=== PATIENT | male | born 1995 | race African-American/Black ===

== ENCOUNTER 2017-06-30 19:47 | Emergency (ER) | payer BC ==
[2017-06-30 19:52] VITALS: BP 144/83; PULSE 70; TEMP 98.8; BMI 23.6
[2017-06-30] MEDS ORDERED: DIPHTH,PERTUSS(ACELL),TET 0.5 ML DISP.SYRIN IM ONE (20:09)
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
[2017-06-30] MEDS ORDERED: IBUPROFEN 600 MG TABLET (FP) PO ONE ×2 (20:54→20:55)
== END 2017-06-30 21:58 | disposition home or self-care (01) ==
LOC: JERFT 19:47
PROC: 0HQKXZZ Repair Right Lower Leg Skin, External Approach (ICD-10-PCS; principal; 2017-06-30)
PROC: 3E0234Z Introduction of Serum, Toxoid and Vaccine into Muscle, Percutaneous Approach (ICD-10-PCS; 2017-06-30)
DX: S81.011A Laceration without foreign body, right knee, initial encounter (principal); V28.0XXA Motorcycle driver injured in noncollision transport accident in nontraffic accident, initial encounter; Y93.89 Activity, other specified; Y92.410 Unspecified street and highway as the place of occurrence of the external cause
CPT/HCPCS: 73560-TC-RT; 90715; 99281-25

== ENCOUNTER 2017-07-02 09:33 | Emergency (ER) | payer BC ==
[2017-07-02 09:37] VITALS: BP 124/62; PULSE 78; TEMP 98; BMI 23.6
--- NOTE | 2017-07-02 10:29 | PDOC ---
Suture Removal/Wound Check HPI - History of Present Illness Chief Complaint: Revisit,Wound Recheck Stated Complaint: FOLLOW UP Time Seen by Provider: 07/02/17 10:20 History Source: Yes: Patient Exam Limitations: Yes: No Limitations Treated at: [facility] Date of Last ED visit: 06/30/17 - Previous ED Treatment Type of procedure performed on last visit: Yes: Laceration Repair Tetanus Immunization: Yes: Given at last ED visit Antibiotics Prescribed: Yes Past History - Past Medical History Allergies/Adverse Reactions: Allergies No Known Allergies Allergy (Verified 07/02/17 09:36) Home Medications: Ambulatory Orders Cephalexin [Keflex] 250 mg PO QID #28 capsule 06/30/17 General: Yes: no pertinent history Surgical History: Yes: No Surgical History - Immunization History Immunizations Up to Date: Yes - Social History Smoking Status: Never smoked Suture Removal/Wound Check PE - Physical Exam Laceration/Wound Check Symptoms: reports: Discharge Comments: 07/02/17 10:24 right knee laceration repair 2 days ago here for wound check. pt c/o decreased pain, has some drainage from the wound. pt taking keflex. no fever. Current Severity Level: Mild Maximum Severity Level: Moderate Location of Laceration/Wound: right: Knee (7 simple interrupted sutures with serousangenous drainge, swelling noted to the area ) Comments: 07/02/17 10:26 pt has FROM of the knee, no pain with movement scant amount of drainage from the proximal area of laceration *Review of Systems - Review of Systems Able to Perform ROS?: Yes Constitutional: No: Symptoms Reported HEENTM: No: Symptoms Reported Respiratory: No: Symptoms reported Cardiac (ROS): No: Symptoms Reported ABD/GI: No: Symptoms Reported : No: Symptoms Reported Integumentary: Yes: Symptoms Reported Procedures - Additional Procedures Progress: 07/02/17 10:25 4 sutures removed at the proximal area of laceration, cleaned with peroxide steristrip to loosely approximate the wound, bandaid placed, knee immobilizer re -placed Medical Decision Making - Medical Decision Making 07/02/17 10:29 cc: wound check s/p laceration repari 48hrs ago pt taking kelfex no fever, has some drainage from the wound will remove 4 sutures and loosley approximate the wound the owund may heal by secondary intention, will have pt follow with ortho tomorrow for strict wound care and follow up pt understands and will call tomorrow pt and his friend are aware that the wound may take weeks to heal, that the wound needs to be closely followed to prevent wound infection. *DC/Admit/Observation/Transfer Diagnosis at time of Disposition: Visit for wound check - Discharge Dispostion Disposition: HOME Condition at time of disposition: Fair - Referrals Referrals: Edmond Beltrán MD [Staff Physician] - Dallas Schmitz MD [Staff Physician] - - Patient Instructions Additional Instructions: please call the orthopedist tomorrow to make appointment for follow up within the next 2 days for wound care, this is VERY important to continue in the healing process keep the wound dry, let it air out at home continue the antibiotics return if fever, redness, the wound feels hot or any other complaints
== END 2017-07-02 10:55 | disposition home or self-care (01) ==
LOC: JERFT 09:33
DX: Z48.01 Encounter for change or removal of surgical wound dressing (principal)
CPT/HCPCS: 99281-25